=== PATIENT | male | born 1970 | race Caucasian/White ===

== ENCOUNTER → 2018-07-05 | Outpatient (CLI) | payer OTHER ==
[~2018-07-05] MED LIST: BACL-1 PO; FINA1TAB10 PO; IBUP-56 PO
--- NOTE | 2018-07-05 17:24 | RADIOLOGY IMAGING REPORT ---
FACILITY: [facility] - [place] PATIENT NAME: Twin Beltrán : 1970 MR: [id number] V: [id number] EXAM DATE: [id number] ORDERING PHYSICIAN: GILMER MANNING TECHNOLOGIST: Location: [facility] Patient: Twin Beltrán : 1970 Visit/Account:[id number] Date of Sevice: 07/05/2018 CT CHEST W/O CONTRAST History: Cough, shortness of breath, nodule seen on chest x-ray TECHNIQUE: Contiguous axial images were performed through the chest to the level of the adrenal gla nds. No IV contrast was administered. Coronal and sagittal reformatting was also performed.Dose Lower ing Technique One of the following dose optimization techniques was utilized in the performance of this exam: Autom ated exposure control; adjustment of the mA and/or kV according to the patient's size; or use of an i terative reconstruction technique. Specific details can be referenced in the facility's radiology C T exam operational policy. COMPARISON STUDIES: Chest x-ray February 16, 2015. Lungs / Pleura: Numerous tiny micronodules are seen throughout the lungs. Some of the nodules orga nized into nodular appearing infiltrate in the right middle lobe and lingula. There is a slightly spiculated noncalcified 9 x 7 mm nodule in the medial right upper lobe best seen on image 26 of series 3. Mediastinum/nodes: The mediastinal structures are not ideally evaluated due to lack of contrast alth ough there is suggestion of a right hilar mass/adenopathy. Also noted are numerous prevascular space lymph nodes measuring up to 2.1 x 1.1 cm. There are multiple pretracheal lymph nodes measuring up t o 9 x 8 mm. There are multiple small AP window lymph nodes and small subcarinal lymph nodes Heart and vessels: negative. Musculoskeletal / Body wall: There mild spondylotic changes of the thoracic spine Upper abdomen: There are multiple celiac lymph nodes. In index node measures 1.6 x 1.2 cm the sple en is incompletely imaged although there are multiple round hypoattenuating lesion seen along the inf erior border measuring up to 1.1 cm in diameter IMPRESSION: There are numerous tiny micronodules scattered throughout the lungs. There are several groupings of nodules organized into nodular appearing infiltrates in the right middle lobe and lingula although ma ny are scattered diffusely throughout the lungs. There is a dominant spiculated nodule in the medial right upper lobe measuring 9 x 7 mm. Although these findings could be related to an infectious/infl ammatory process malignancy is in the differential diagnosis. There is prominent mediastinal adenopathy and suggestion of a right hilar mass/adenopathy although me diastinal structures not well evaluated due to lack of contrast. Also noted is celiac adenopathy. Spleen is incompletely imaged although there are multiple hypoattenuating masses within the spleen as well. Short-term interval follow-up and clinical correlation needed to exclude a malignant process Report Dictated By: Macie Farley MD at 07/05/2018 5:08 PM Report E-Signed By: Macie Farley MD at 07/05/2018 5:19 PM RYAN:CHACE
== END ==
LOC: CT 16:32
PROVIDERS: ATTEND Physician Assistant
DX: R91.8 Other nonspecific abnormal finding of lung field (principal); R05 Cough; R06.02 Shortness of breath
CPT/HCPCS: 71250

== ENCOUNTER → 2018-07-07 | Outpatient (CLI) | payer OTHER ==
[2018-07-07 12:21] LABS: PLATELET COUNT, AUTOMATED 241 K/uL (150-450)
== END ==
LOC: LAB 11:51
PROVIDERS: ATTEND Family Medicine
DX: R91.1 Solitary pulmonary nodule (principal)
CPT/HCPCS: 36415; 82040; 82247; 82310; 82374; 82435; 82565; 82947; 83615; 84075; 84132; 84153; 84155; 84295; 84450; 84460; 84520; 85025; 86141; 86635

== ENCOUNTER → 2018-07-17 | Outpatient (CLI) | payer OTHER ==
[~2018-07-17] MED LIST changes: +IOPAMIDOL 76% 150 ML INFUS BTL 150 ML ONE
--- NOTE | 2018-07-17 09:24 | RADIOLOGY IMAGING REPORT ---
[place] [facility] [place] NAME: Twin Beltrán : 1970 MR: [id number] V: [id number] EXAM DATE: [id number] ORDERING PHYSICIAN: MARILIA NICHOLS TECHNOLOGIST: Location: [facility] [place] Patient: Twin Beltrán : 1970 Visit/Account:[id number] Date of Sevice: 07/17/2018 CT CHEST (CONTRAST) History: Solitary pulmonary nodule TECHNIQUE: Contiguous axial images were performed through the chest to the level of the adrenal gla nds following the administration of IV contrast. Coronal and sagittal reformatting was also perform ed.Dose Lowering Technique One of the following dose optimization techniques was utilized in the performance of this exam: Autom ated exposure control; adjustment of the mA and/or kV according to the patient's size; or use of an i terative reconstruction technique. Specific details can be referenced in the facility's radiology C T exam operational policy. Contrast: 75 mL [id number]-[id number] COMPARISON STUDIES: July 05, 2018. Lungs / Pleura: 7 x 9 mm spiculated nodule medial aspect of the right upper lobe appears well total ly unchanged and is best seen on image 93 of series 4. Numerous tiny micronodules are again seen thr oughout the lungs that appear relatively unchanged as well. Nodular appearing infiltrates also appea r relatively unchanged in the right middle lobe and lingula. Mediastinum/nodes: Multiple prevascular space lymph nodes again seen measuring up to 2.1 x 1.1 cm. Multiple small pretracheal lymph nodes also appear unchanged all measuring less than 1 cm in horizont al short axis. Multiple small AP window lymph nodes and subcarinal lymph nodes again noted. There i s airspace consolidation adjacent to the right hilum extending extending from the right middle lobe o r suggestive of atelectasis. Similar finding is seen adjacent to the left hilum but to a lesser exte nt Heart and vessels: negative. Musculoskeletal / Body wall: There mild spondylotic changes of the thoracic spine Upper abdomen: Multiple celiac lymph nodes again seen. Previously referenced 1.6 x 1.2 cm node jessy ears relatively unchanged. Incompletely imaged are round hypoattenuating lesions along the inferior border of the spleen IMPRESSION: Numerous pulmonary nodules appear relatively unchanged when compared the prior study as does the 7 x 9 mm spiculated nodule in the right upper lobe. Malignancy remains a concern Mild mediastinal adenopathy appears unchanged Celiac adenopathy appears unchanged There is airspace consolidation adjacent to the right and left edita. Appearance is more suggestive o f atelectasis although continued follow-up recommended Multiple hypodensities within the spleen are incompletely imaged although concerning for malignancy a s well Report Dictated By: Macie Farley MD at 07/17/2018 9:01 AM Report E-Signed By: Macie Farley MD at 07/17/2018 9:19 AM WSN:[id number]
--- NOTE | 2018-07-17 09:52 | RADIOLOGY IMAGING REPORT ---
[place] [facility] [place] NAME: Twin Beltrán : 1970 MR: [id number] V: [id number] EXAM DATE: ORDERING PHYSICIAN: MARILIA NICHOLS TECHNOLOGIST: Location: [facility] - [place] Patient: Twin Beltrán : 1970 Visit/Account:[id number] Date of Sevice: 07/17/2018 CT ABD W/ & W/O CON HISTORY: Pulmonary nodules and indeterminate findings within spleen. TECHNIQUE: CT abdomen without and with intravenous contrast. One of the following dose optimization techniques was utilized in the performance of this exam: Autom ated exposure control; adjustment of the mA and/or kV according to the patient's size; or use of an i terative reconstruction technique. Specific details can be referenced in the facility's radiology C T exam operational policy. CONTRAST: None. COMPARISON: Chest CT 07/17/2018, Chest CT 07/05/2018 FINDINGS: Visualized lung bases: Numerous solid micronodules, scattered throughout each lung base with most no table along the course of each visible fissure. Hepatobiliary: Too small to characterize low attenuating lesion central left hepatic dome, most like ly cyst. Spleen: Mildly enlarged. Along the caudal margin spleen are several hypoenhancing intermediate atten uating lesions, the largest measuring 1.2 cm. Adrenals: Negative. Pancreas: Negative. Kidneys/Visualized : Negative. Visualized GI: Negative. Vessels/spaces/nodes: Several prominent to mildly enlarged celiac axis lymph nodes, largest 1.2 x 1. 6 cm (09/11). No visible ascites. Bones/soft tissues: Unremarkable. IMPRESSION: Several intermediate attenuating hypoenhancing splenic lesions detailed above. Although nonspecific, in conjunction with findings on CT chest as well as several prominent to mildly enlarged celiac axis lymph nodes, differential considerations again include metastatic disease but also sarcoidosis with t he latter favored. Bronchoscopic ultrasound for central giana tissue sampling could be considered. Report Dictated By: Gee Zaragoza MD at 07/17/2018 9:33 AM Report E-Signed By: Gee Zaragoza MD at 07/17/2018 9:48 AM WSN:[id number]
== END ==
LOC: CT 01:07
PROVIDERS: ATTEND Family Medicine
DX: R91.1 Solitary pulmonary nodule (principal); R59.0 Localized enlarged lymph nodes
CPT/HCPCS: 71260; 74170; Q9967

== ENCOUNTER → 2018-08-15 | Outpatient (CLI) | payer OTHER ==
[~2018-08-15] MED LIST changes: -IOPAMIDOL 76% 150 ML INFUS BTL 150 ML ONE
--- NOTE | 2018-08-15 08:55 | EKG ---
FACILITY: [facility] PATIENT NAME: LEÓN WIGGINS : [id number] MR: [id number] V: [id number] EXAM DATE: ORDERING PHYSICIAN: KELLI RAYO TECHNOLOGIST: MALINDA Meza Reason : D86.9 Blood Pressure : / mmHG Vent. Rate : 058 BPM Atrial Rate : 058 BPM P-R Int : 144 ms QRS Dur : 106 ms QT Int : 412 ms P-R-T Axes : 070 070 063 degrees QTc Int : 404 ms Sinus bradycardia Otherwise normal ECG No previous ECGs available Confirmed by MATT DEE ([id number]) on 08/15/2018 2:02:13 PM Referred By: PERRI Confirmed By:MATT DEE
== END ==
LOC: RESP 01:01
PROVIDERS: ATTEND Internal Medicine
DX: D86.9 Sarcoidosis, unspecified (principal)
CPT/HCPCS: 36415; 86480; 93005; 94060; 94726; 94729